=== PATIENT | male | born 1955 | race African-American/Black ===

== ENCOUNTER 2017-03-13 08:22 | Emergency (ER) | payer SELFPAY ==
[2017-03-13 08:36] VITALS: BMI 34.0
[2017-03-13] MEDS ORDERED: ASPIRIN 81 MG CHEWABLE TABLETS PO ONE (08:48)
--- NOTE | 2017-03-13 08:50 | PDOC ---
History of Present Illness <Charley Guzman - Last Filed: 03/13/17 10:59> - History of Present Illness Beta Wali given by EMS (Core Measure): No Beta Wali taken at Home (Core Measure): No <Suman Lee - Last Filed: 03/13/17 12:39> - General Chief Complaint: Chest Pain Stated Complaint: CHEST PAIN Time Seen by Provider: 03/13/17 08:37 - History of Present Illness Initial Comments: 03/13/17 09:59 The patient is a 61 year old male, with a significant past medical history of diabetes, who presents to the emergency department with persistent chest pain since yesterday at 4PM. The patient states the pain is a constant dull pressure with intermittent sharp pain. He reports the chest pain as left-sided with radiation to his left shoulder and reports a short period of left hand numbness this morning. The patient reports having a verbal dispute with someone prior to the onset of his symptoms. He took motrin last night with improvement of his symptoms last night. He states he went to sleep, but was prompted to come to the ED when his pain had persisted, this morning. He reports the pain yesterday was more severe. Secondarily, the patient reports diaphoresis with his chest pain yesterday. He states that in the past couple of weeks he has been short of breath with walking up a hill. He reports pain to his chest when he lifts his left arm. He reports having a stress test about 6 months with his board writer. He denies recent exercise or heavy lifting/injuries. He denies headache and dizziness. He denies fever, chills, nausea, vomit, diarrhea and constipation. He denies dysuria, frequency, urgency and hematuria. Allergies: NKDA Social history: Works as a medical coding auditor, denies tobacco or illicit drug use. Denies alcohol use. PCP - Dr. Pina Flour Distributor - Dr. Lopez (Charley Guzman) Past History <Charley Guzman - Last Filed: 03/13/17 10:59> - Past Medical History Diabetes: Yes (borderline) - Family Disease History Family Disease History: Diabetes: Mother - Immunization History Immunization Up to Date: Yes - Psycho/Social/Smoking Cessation Hx Anxiety: No Suicidal Ideation: No Smoking History: Never smoked Have you smoked in the past 12 months: No Information on smoking cessation initiated: No Hx Alcohol Use: No Drug/Substance Use Hx: No Substance Use Type: None Hx Substance Use Treatment: No <Suman Lee - Last Filed: 03/13/17 12:39> - Past Medical History Allergies/Adverse Reactions: Allergies Allergy/AdvReac Type Severity Reaction Status Date / Time No Known Allergies Allergy Verified 01/09/16 15:05 Home Medications: Ambulatory Orders Acetaminophen [Tylenol] 650 mg PO QID #30 tablet 01/10/16 Review of Systems - Review of Systems Able to Perform ROS?: Yes <Charley Guzman - Last Filed: 03/13/17 10:59> <Suman Lee - Last Filed: 03/13/17 12:39> - Review of Systems Comments:: 03/13/17 10:00 CONSTITUTIONAL: No reported: Fever, Chills, Diaphoresis, Generalized Weakness, Malaise, Loss of Appetite HEENT: No reported: Rhinorrhea, Nasal Congestion, Throat Pain, Throat Swelling, Difficulty Swallowing, Mouth Swelling, Ear Pain, Eye Pain, Visual Changes CARDIOVASCULAR: (+) Chest Pain,No reported: Syncope, Palpitations, Irregular Heart Rate, Lightheadedness, Peripheral Edema RESPIRATORY: No reported: Cough, Shortness of Breath, SOB with Exertion, Orthopnea, Wheezing , Stridor, Hemoptysis GASTROINTESTINAL: No reported: Abdominal pain, Abdominal Distension, Nausea, Vomiting, Diarrhea, Constipation, Melena, Hematochezia GENITOURINARY: No reported: Dysuria, Frequency, Urgency, Hesitancy, Flank Pain, Genital Pain MUSCULOSKELETAL: (+) left shoulder pain. No reported: Arthralgia, Joint Swelling, Back pain, Neck Pain SKIN: No reported: Rash, Itching, Pallor HEMEATOLOGIC/IMMUNOLOGIC: No reported: Easy Bleeding, Easy Bruising, Lymphadenopathy, Frequent infections ENDOCRINE: No reported: Unexplained Weight Gain, Unexplained Weight Loss, Heat Intolerance , Cold Intolerance NEUROLOGIC: No reported: Headache, Focal Weakness, Paresthesias, Vertigo, Lightheadedness, Unsteady Gait, Seizure, Mental Status Changes, Incontinence PSYCHIATRIC: No reported: Anxiety, Depression (Charley Guzman) *Physical Exam <Charley Guzman - Last Filed: 03/13/17 10:59> <Suman Lee - Last Filed: 03/13/17 12:39> - Vital Signs Last Vital Signs Temp Pulse Resp BP Pulse Ox 98.3 F 82 20 125/80 98 03/13/17 10:34 03/13/17 10:34 03/13/17 10:34 03/13/17 10:34 03/13/17 10:34 - Physical Exam Comments: 03/13/17 10:00 GENERAL: The patient is awake, alert, and fully oriented, Nontoxic - in no acute distress. HEAD: Normocephalic, atraumatic. EYES: extraocular movements intact, sclera anicteric, conjunctiva clear. ENT: Normal voice, Moist mucous membranes. NECK: Normal range of motion, supple LUNGS: Breath sounds equal, clear to auscultation bilaterally. No wheezes, no rhonchi, no rales. HEART: Regular rate and rhythm, without murmur, rub or gallop. ABDOMEN: Soft, nontender, normoactive bowel sounds. No guarding, no rebound.No CVA tenderness EXTREMITIES: Normal range of motion, no edema. reproducible tenderness ot the L trapezius/and pectorallis. NEUROLOGICAL: No facial assymetry, Normal speech, PSYCH: Normal mood, normal affect. SKIN: Warm, Dry, normal turgor, (Charley Guzman) Heart Score/ECG Review <Charley Guzman - Last Filed: 03/13/17 10:59> <Suman Lee - Last Filed: 03/13/17 12:39> - ECG Impressions Comment:: 03/13/17 10:24 Twelve-lead EKG was performed and reviewed by me. There is normal sinus rhythm Rate of 55 The axis is normal. The intervals are normal. There is normal R wave progression St elevation in anterior leads likely secondary to early repolarization, no significant changes when compared with prior EKG dated 01/10/2016 (Suman Lee) ED Treatment Course - LABORATORY CBC & Chemistry Diagram: 03/13/17 08:49 03/13/17 08:49 <Charley Guzman - Last Filed: 03/13/17 10:59> - LABORATORY CBC & Chemistry Diagram: 03/13/17 08:49 03/13/17 08:49 <Suman Lee - Last Filed: 03/13/17 12:39> - ADDITIONAL ORDERS Additional order review: Laboratory Results 03/13/17 03/13/17 08:49 08:49 INR 0.94 Sodium 137 Potassium 4.3 Chloride 97 L Carbon Dioxide 29 Anion Gap 11 BUN 15 D Creatinine 1.4 H Creat Clearance w eGFR 51.52 Random Glucose 280 H D Calcium 9.7 Magnesium 1.9 Total Bilirubin 0.4 AST 32 D ALT 50 Alkaline Phosphatase 99 Creatine Kinase 302 D Troponin I < 0.02 Creatine Kinase Index 0.6 CK-MB (CK-2) 1.925 Total Protein 7.7 Albumin 3.9 03/13/17 08:49 RBC 5.16 MCV 82.3 MCHC 35.2 RDW 13.2 MPV 8.2 Neutrophils % 33.0 L D Lymphocytes % 57.5 H D Monocytes % 6.6 Eosinophils % 2.3 Basophils % 0.6 - RADIOLOGY Radiology Studies Ordered: Category Date Time Status CHEST PA & LAT [RAD] Stat Radiology 03/13/17 08:48 Completed Radiograph Interpretation: 03/13/17 09:10 CXR was read by Dr. Ghotra at 09:07 Impression: No evidence of active pulmonary disease. No evidence of CHF. ( Charley Guzman) - Medications Given in the ED: ED Medications Discontinued Medications Generic Name Dose Route Start Last Admin Trade Name Blaise PRN Reason Stop Dose Admin Acetaminophen 650 mg 03/13/17 11:10 03/13/17 11:15 Tylenol - PO 03/13/17 11:11 650 mg ONCE ONE Administration Aspirin 162 mg 03/13/17 08:48 03/13/17 08:57 Asa - PO 03/13/17 08:49 162 mg ONCE ONE Administration Medical Decision Making <Charley Guzman - Last Filed: 03/13/17 10:59> <Suman Lee - Last Filed: 03/13/17 12:39> - Medical Decision Making 03/13/17 10:59 Dr. Lopez was paged via phone answering service at 10:59 requesting a call back for doctor to doctor consult. Dr. Lopez returned the call at 11:01 and the patient's case was discussed. ( Charley Guzman) 03/13/17 08:49 61y M hx of borderline DM (currently being worked up) presents with chest pain x 1 day, pt states he started having L sided chest pain after having an argument with his collegue last night with some diaphoresis, sob, notes that it is worse with moving his left arm. on exam pt does have some reproducible tenderness ot L shouolder and anterior chest wall and wit hlifting his L arm. he is otherwise well appearing in no distress. suspect msk cause, will r/o mi w/ troponin ekg unchanged from prior with early repolarization will d/w dr. lopez A portion of this note was documented by scribe services under my direction. I have reviewed the details of the note, within reason, and agree with the documentation with the following case summary and management plan written by me 03/13/17 12:36 the pts labs neg x 1 awaiting second set of troponin pt does not want to wait for the 2nd set of troponin. I had an indepth discussion with the patient describing how one set of troponin is not sufficient to rule out cardiac disease and acs. The pt states he agrees and is feeling better and wants to go home. I explained to th eusebiotient that he may return at any time to complete his workup and that he should follow up with his PMD and board writer tomorrow. Patient is alert and oriented, and expressed that they would like to leave AGAINST MEDICAL ADVICE. I discussed with them the risks of leaving include , delayed or missed diagnosis of acute coronary syndrome/heart attack, permanant disability. I believe that the patient understands our discussion and is capable of making an informed decision about leaving against medical advice. I also discussed with the patient that they may return at any time to complete their workup. (Suman Lee) *DC/Admit/Observation/Transfer <Charley Guzman - Last Filed: 03/13/17 10:59> - Discharge Dispostion Admit: No <Suman Lee - Last Filed: 03/13/17 12:39> Diagnosis at time of Disposition: Chest pain Qualifiers: Chest pain type: unspecified Qualified Code(s): R07.9 - Chest pain, unspecified - Discharge Dispostion Disposition: AGAINST MEDICAL ADVICE - Referrals Referrals: Jonas Pina MD [Primary Care Provider] - - Patient Instructions Printed Discharge Instructions: DI for Atypical Chest Pain Additional Instructions: You are elected to leave AGAINST MEDICAL ADVICE. We have not yet completed your workup. If you change your mind, you may return at any time to complete your blood tests and workup. Please follow-up with Dr. Pina and Dr. Lopez as an outpatient tomorrow - Attestations Scribe Attestion: 03/13/17 10:01 Documentation prepared by Charley Guzman, acting as medical director/head team physician for Suman Lee MD, (Charley Guzman)
[2017-03-13] MEDS ORDERED: ASPIRIN 81 MG CHEWABLE TABLETS ONE (08:54)
[2017-03-13 09:16] LABS: BASOPHIL 0.6 % (0-2.0); EOSINOPHIL 2.3 % (0-4.5); MCHC 35.2 g/dl (32.0-35.9); MEAN CELL VOLUME 82.3 fl (80-96); MEAN PLT VOLUME 8.2 fl (7.5-11.1); PLATELET COUNT 156 K/MM3 (134-434); RDW 13.2 % (11.9-15.9); WHITE BLOOD COUNT 5.2 K/mm3 (4.0-10.0)
[2017-03-13 09:42] LABS: INR 0.94 (0.82-1.09); PROTHROMBIN TIME (PATIENT) 10.3 SEC (9.98-11.88)
[2017-03-13 10:35] VITALS: BP 125/80; PULSE 82; TEMP 98.3
[2017-03-13 10:54] LABS: ANION GAP 11 (8-16); CO2 29 mmol/L (21-32); COCKROFT - GAULT 81.76; CREATININE 1.4 mg/dL (0.7-1.3); GLUCOSE,RANDOM 280 mg/dL (74-106)
[2017-03-13 10:55] LABS: ALBUMIN 3.9 g/dl (3.4-5.0); BILIRUBIN,TOTAL 0.4 mg/dL (0.2-1.0); CALCIUM 9.7 mg/dL (8.5-10.1); MAGNESIUM 1.9 mg/dL (1.8-2.4); TOT PROT 7.7 g/dl (6.4-8.2)
[2017-03-13 10:56] LABS: ALK PHOS 99 U/L (45-117); SGOT/AST 32 U/L (15-37); SGPT/ALT 50 U/L (12-78); TROPONIN I < 0.02 ng/ml (0.00-0.05)
[2017-03-13] MEDS ORDERED: ACETAMINOPHEN 325 MG TABLET (FP) PO ONE (11:10)
[2017-03-13] MEDS ORDERED: ACETAMINOPHEN 325 MG TABLET (FP) ONE (11:16)
--- NOTE | 2017-03-13 12:30 | EKG ---
Test Reason : Blood Pressure : / mmHG Vent. Rate : 055 BPM Atrial Rate : 055 BPM P-R Int : 154 ms QRS Dur : 086 ms QT Int : 394 ms P-R-T Axes : 048 -15 003 degrees QTc Int : [address] ELEVATION, CONSIDER EARLY REPOLARIZATION, PERICARDITIS, OR INJURY ABNORMAL ECG WHEN COMPARED WITH ECG OF 10-JAN-2016 01:35, NO SIGNIFICANT CHANGE WAS FOUND Confirmed by JUWAN PLUNKETT, JOSE ([id number]) on 03/13/2017 12:30:34 PM Referred By: Confirmed By:JOSE ECHEVERRIA MD
== END 2017-03-13 12:47 | disposition left against medical advice (07) ==
LOC: JER 08:22
DX: R07.9 Chest pain, unspecified (principal); R73.03 Prediabetes
CPT/HCPCS: 36415; 71020-TC; 80053; 82550; 82553; 83735; 84484; 85025; 85610; 93005; 93010; 99285-25

== ENCOUNTER 2017-03-19 20:03 | Emergency (ER) | payer SELFPAY ==
[2017-03-19 20:36] LABS: MCH 28.4 pg (25.7-33.7); MCHC 34.4 g/dl (32.0-35.9); MEAN CELL VOLUME 82.7 fl (80-96); MEAN PLT VOLUME 8.4 fl (7.5-11.1); PLATELET COUNT 184 K/MM3 (134-434); WHITE BLOOD COUNT 7.4 K/mm3 (4.0-10.0)
--- NOTE | 2017-03-19 20:48 | PDOC ---
History of Present Illness - General History Source: Patient Exam Limitations: No Limitations - History of Present Illness Initial Comments: 03/19/17 20:54 The patient is a 61 year old male with significant past medical history of uncontrolled diabetes and hyperlipidemia who presents to the ED for several months of intermittent right upper quadrant pain. Patient reports he has had persistent right upper quadrant pain with occasional associated vomiting and diarrhea. States he was seen by his PMD where had blood work done. Patient was told his amylase and lipase was elevated and thus sent here for further evaluation. The patient denies fever, chills, cough, SOB, chest pain, and palpitations. Allergies: NKDA Social History: No alcohol, tobacco, or drug use reported. Past Surgical History: None reported PCP: Dr. Jonas Pina Cardio: Dr. Lamin Olguin <Seda Storm - Last Filed: 03/19/17 22:34> - General History Source: Patient <JovaniYang pabon - Last Filed: 03/19/17 22:37> - General Chief Complaint: Pain, Acute Stated Complaint: SENT BY PCP Time Seen by Provider: 03/19/17 20:36 Past History <Seda Storm - Last Filed: 03/19/17 22:34> - Past Medical History Diabetes: Yes (borderline) - Family Disease History Family Disease History: Diabetes: Mother - Immunization History Immunization Up to Date: Yes - Psycho/Social/Smoking Cessation Hx Anxiety: No Suicidal Ideation: No Smoking History: Never smoked Have you smoked in the past 12 months: No Hx Alcohol Use: No Drug/Substance Use Hx: No Substance Use Type: None Hx Substance Use Treatment: No <Yang Goff - Last Filed: 03/19/17 22:37> - Past Medical History Allergies/Adverse Reactions: Allergies Allergy/AdvReac Type Severity Reaction Status Date / Time No Known Allergies Allergy Verified 03/19/17 20:24 Home Medications: Ambulatory Orders Acetaminophen [Tylenol] 650 mg PO QID PRN 03/19/17 Review of Systems - Review of Systems Able to Perform ROS?: Yes Comments:: 03/19/17 20:54 CONSTITUTIONAL: Absent: fever, no chills, no fatigue EYES: Absent: visual changes ENT: Absent: ear pain, no sore throat CARDIOVASCULAR: Absent: chest pain, no palpitations RESPIRATORY: Absent: cough, no SOB GI: +R upper quadrant pain, nausea, vomiting, diarrhea Absent: no constipation GENITOURINARY: Absent: dysuria, no frequency, no hematuria MUSCULOSKELETAL: Absent: back pain, no arthralgia, no myalgia SKIN: Absent: rash NEURO: Absent: headache <Seda Storm - Last Filed: 03/19/17 22:34> *Physical Exam - Vital Signs Last Vital Signs Temp Pulse Resp BP Pulse Ox 98.2 F 88 18 122/70 97 03/19/17 20:24 03/19/17 20:24 03/19/17 20:24 03/19/17 20:24 03/19/17 20:24 - Physical Exam Comments: 03/19/17 20:54 GENERAL: Well-appearing, well-nourished. No apparent distress. HEENT: Normocephalic, atraumatic. PERRL, EOM intact. CARDIOVASCULAR: Normal S1, S2. Regular rate and rhythm. PULMONARY: Clear to auscultation bilaterally. ABDOMEN: Soft, non-distended, non-tender. EXTREMITIES: Normal ROM in all four extremities. No gross deformities. SKIN: Warm, dry. No rash NEUROLOGICAL: No focal neurological deficits. <Seda Storm - Last Filed: 03/19/17 22:34> - Vital Signs Last Vital Signs Temp Pulse Resp BP Pulse Ox 98.2 F 88 18 122/70 97 03/19/17 20:24 03/19/17 20:24 03/19/17 20:24 03/19/17 20:24 03/19/17 20:24 <Yang Goff - Last Filed: 03/19/17 22:37> ED Treatment Course - LABORATORY CBC & Chemistry Diagram: 03/19/17 20:25 03/19/17 20:25 - ADDITIONAL ORDERS Additional order review: 03/19/17 20:25 RBC 5.25 MCV 82.7 MCHC 34.4 RDW 13.0 MPV 8.4 Neutrophils % Y Lymphocytes % Y <Seda Storm - Last Filed: 03/19/17 22:34> - LABORATORY CBC & Chemistry Diagram: 03/19/17 20:25 03/19/17 20:25 - ADDITIONAL ORDERS Additional order review: 03/19/17 20:25 RBC 5.25 MCV 82.7 MCHC 34.4 RDW 13.0 MPV 8.4 Neutrophils % Y Lymphocytes % Y <Yang Goff - Last Filed: 03/19/17 22:37> Medical Decision Making - Medical Decision Making 03/19/17 22:[address] Gian Cordova who is covering for Dr. Jonas Pina (via answering service) Awaiting call back 03/19/17 22:31 Patient's case discussed with Dr. Cordova <Sdea Storm - Last Filed: 03/19/17 22:34> - Medical Decision Making 03/19/17 22:36 Dr. Goff: The scribe's documentation has been prepared under my direction and personally reviewed by me in its entirery. I confirm that the note above accurately reflects all work, treatment, procedures, and medical decision making performed by me. All studies stable. Pt feels well. Spoke to covering doctor for Dr. Pina. Will discharge. <Yang Goff - Last Filed: 03/19/17 22:37> *DC/Admit/Observation/Transfer - Attestations Scribe Attestion: 03/19/17 20:55 Documentation prepared by Seda Storm, acting as director medical for Yang Goff MD/DO. <Seda Storm - Last Filed: 03/19/17 22:34> - Discharge Dispostion Admit: No <Yang Goff - Last Filed: 03/19/17 22:37> Diagnosis at time of Disposition: Abdominal pain Qualifiers: Abdominal location: right upper quadrant Qualified Code(s): R10.11 - Right upper quadrant pain - Discharge Dispostion Disposition: HOME Condition at time of disposition: Stable - Referrals Referrals: Jonas Pina MD [Primary Care Provider] - - Patient Instructions Printed Discharge Instructions: DI for Abdominal Pain-Adult Additional Instructions: Please follow up with your doctor for continued evaluation. TAke all your current medications. Return if any problems.
[2017-03-19 20:49] LABS: INR 1.03 (0.82-1.09); PROTHROMBIN TIME (PATIENT) 11.3 SEC (9.98-11.88)
[2017-03-19 20:55] VITALS: BP 122/70; PULSE 88; TEMP 98.2; BMI 31.6
[2017-03-19 21:05] LABS: ALBUMIN 4.2 g/dl (3.4-5.0); AMYLASE 49 U/L (25-115); ANION GAP 7 (8-16); CALCIUM 9.9 mg/dL (8.5-10.1); CO2 31 mmol/L (21-32); CREATININE 1.6 mg/dL (0.7-1.3); SGOT/AST 37 U/L (15-37); SGPT/ALT 50 U/L (12-78); TOT PROT 8.2 g/dl (6.4-8.2)
[2017-03-19 21:09] LABS: ALK PHOS 96 U/L (45-117); BILIRUBIN,TOTAL 0.7 mg/dL (0.2-1.0)
[2017-03-19 21:12] LABS: GLUCOSE,RANDOM 351 mg/dL (74-106)
[2017-03-19 21:32] LABS: PLATELET ESTIMATE ADEQUATE (NORMAL)
== END 2017-03-19 23:01 | disposition home or self-care (01) ==
LOC: JER 20:03
DX: R10.11 Right upper quadrant pain (principal)
CPT/HCPCS: 36415; 76705-TC; 80053; 82150; 83690; 85025; 85610; 99282-25

== ENCOUNTER 2019-05-02 15:39 | Emergency (ER) | payer OTHER | END 2019-05-02 20:30 | disposition home or self-care (01) | LOC: JER 15:39 ==